=== PATIENT | female | born 1990 | race Caucasian/White ===

== ENCOUNTER 2016-05-14 13:55 | Emergency (ER) | payer BC ==
[~2016-05-14] VITALS: Ht 157.5 cm; Wt 58.0 kg
[2016-05-14 14:00] VITALS: Ht 157.5 cm; Wt 58.0 kg
--- NOTE | 2016-05-14 14:30 | ERD ---
ER Documentation Chief Complaint Date/Time DATE: 05/14/16 TIME: 14:28 Chief Complaint pt thinks she's having an allergic reaction to muncha crunch HPI 26-year-old female presents the emergency department after a questionable allergic reaction. Patient states she ate something with knots and feels as if her throat was closing for a couple of minutes. She reported no reaction including no rash and no difficulty breathing. After lasting for approximately half an hour, this is completely resolved and she now has no further symptoms. ROS All systems reviewed and are negative except as per history of present illness. Allergies Allergies: Coded Allergies: amoxicillin (Verified Allergy, Mild, 05/14/16) PMhx/Soc Medical and Surgical Hx: pt denies Medical Hx, pt denies Surgical Hx History of Surgery: No Anesthesia Reaction: No Hx Neurological Disorder: No Hx Respiratory Disorders: No Hx Cardiac Disorders: No Hx Psychiatric Problems: No Hx Miscellaneous Medical Probl: No Hx Alcohol Use: No Hx Substance Use: No Hx Tobacco Use: No Smoking Status: Never smoker FmHx Noncontributory for chief complaint Physical Exam Vitals Vital Signs Date Time Temp Pulse Resp B/P Pulse Ox O2 Delivery O2 Flow Rate FiO2 05/14/16 14:00 98.3 123 20 123/72 100 Physical Exam GENERAL: The patient is well developed and appropriate for usual state of health in no apparent distress HEENT: Pupils equal, round, and reactive to light. EOMI. There is no scleral icterus. No tonsillar hypertrophy or uvula edema NECK: C-spine is soft and supple, there is no meningismus. There is no cervical lymphadenopathy. No stridor LUNGS: Clear to auscultation bilaterally. There are no rales, wheezes or rhonchi. HEART: Regular rate and rhythm, no murmurs, clicks, rubs or gallops. Skin: No rash noted Procedures/MDM Patient was taken to a room, seen and examined Medical decision makin-year-old female presents with what she considers to be a questionable reaction to eating nuts. At this time, patient has no residual findings of allergy at all. She has no signs of symptoms of anaphylaxis or anaphylactoid type reaction. She is clinically well this time and now appropriate for outpatient care. Departure Diagnosis: Primary Impression: Allergic reaction Patient Instructions: Allergic Reaction, Other (General) Additional Instructions: Use benadryl or zyrtec if you need to. Return for any problems or concerns SHERRY EAST May 14, 2016 14:30
== END 2016-05-14 14:30 | disposition home or self-care (01) ==
LOC: FTE 13:55
DX: T78.1XXA Other adverse food reactions, not elsewhere classified, initial encounter (principal); J39.2 Other diseases of pharynx
CPT/HCPCS: 99282

== ENCOUNTER 2016-07-30 02:23 | Emergency (ER) | payer BC ==
[~2016-07-30] VITALS: Ht 157.5 cm; Wt 46.5 kg
[2016-07-30 02:29] VITALS: Ht 157.5 cm; Wt 46.5 kg
[2016-07-30] MEDS ORDERED: ALPRAZOLAM 1 MG TAB PO ONE (03:00)
[2016-07-30 03:11] LABS: ADD SCAN DIFF NO
--- NOTE | 2016-07-30 03:15 | ERD ---
ER Documentation Chief Complaint Date/Time DATE: 07/30/16 TIME: 03:06 Chief Complaint palpitations/sob on and off x 1 day HPI 26-year-old female is here in emergency department for complaints of palpitations on and off shortness of breath and chest pain started yesterday. Patient has history of anxiety, she used to take Paxil for this. Patient states that her bronchitis symptoms as well as return ever since her mom a few months ago, last 2 weeks, stress has been more in school. Today, patient has episodes of palpitations, shortness of breath and chest pain, sharp pain, 4/10 scale, is worse upon taking a deep breath. Patient denies any dyspnea on exertion or dyspnea when help. Patient feels will heart rate going faster. Patient denies any dizziness. ROS All systems reviewed and are negative except as per history of present illness. Medications Home Meds Active Scripts [none] No Conflict Check Prov:LEESA MELVIN NP 07/30/16 Allergies Allergies: Coded Allergies: amoxicillin (Verified Allergy, Mild, 07/30/16) PMhx/Soc Medical and Surgical Hx: pt denies Medical Hx, pt denies Surgical Hx History of Surgery: No Anesthesia Reaction: No Hx Neurological Disorder: No Hx Respiratory Disorders: No Hx Cardiac Disorders: No Hx Psychiatric Problems: No Hx Miscellaneous Medical Probl: No Hx Alcohol Use: No Hx Substance Use: No Hx Tobacco Use: No Smoking Status: Never smoker FmHx Family History: No coronary disease, No diabetes, No other Physical Exam Vitals Vital Signs Date Time Temp Pulse Resp B/P Pulse Ox O2 Delivery O2 Flow Rate FiO2 07/30/16 03:44 94 07/30/16 02:29 98.9 127 20 133/84 100 Physical Exam GENERAL: The patient is well developed and appropriate for usual state of health, in no apparent distress. CHEST: Clear to auscultation bilaterally. There are no rales, wheezes or rhonchi. HEART: Regular rate and rhythm. No murmurs, clicks, rubs or gallops. No S3 or S4. ABDOMEN: Soft, nontender and nondistended. Good bowel sounds. No rebound or guarding. No gross peritonitis. No gross organomegaly or masses. No Rahman sign or McBurney point tenderness. BACK: No midline or flank tenderness. EXTREMITIES: Equal pulses bilaterally. There is no peripheral clubbing, cyanosis or edema. No focal swelling or erythema. Full range of motion. Grossly neurovascularly intact. NEURO: Alert and oriented. Cranial nerves 2-12 intact. Motor strength in all 4 extremities with 5/5 strength. Sensation grossly intact. Normal speech and gait. SKIN: There is no apparent rash or petechia. The skin is warm and dry. HEMATOLOGIC AND LYMPHATIC: There is no evidence of excessive bruising or lymphedema. No gross cervical, axillary, or inguinal lymphadenopathy. Result Diagram: 07/30/16 03007/30/16 0300 Results 24 hrs Laboratory Tests Test 07/30/16 03:00 White Blood Count 5.810^3/ul Red Blood Count 4.6410^6/ul Hemoglobin 14.7g/dl Hematocrit 41.8% Mean Corpuscular Volume 90.1fl Mean Corpuscular Hemoglobin 31.7pg Mean Corpuscular Hemoglobin Concent 35.2g/dl Red Cell Distribution Width 11.8% Platelet Count 27776^3/UL Mean Platelet Volume 10.9fl Neutrophils % 52.2% Lymphocytes % 35.8% Monocytes % 9.0% Eosinophils % 2.3% Basophils % 0.5% Nucleated Red Blood Cells % 0.0/100WBC Neutrophils # 3.010^3/ul Lymphocytes # 2.110^3/ul Monocytes # 0.510^3/ul Eosinophils # 0.110^3/ul Basophils # 0.010^3/ul Nucleated Red Blood Cells # 0.010^3/ul D-Dimer 400.61ng/ml D-Dimer Comment Sodium Level 141mmol/L Potassium Level 3.1mmol/L Chloride Level 105mmol/L Carbon Dioxide Level 21mmol/L Anion Gap 18 Blood Urea Nitrogen 18mg/dl Creatinine 0.58mg/dl Glucose Level 114mg/dl Calcium Level 9.4mg/dl Total Bilirubin 0.7mg/dl Direct Bilirubin 0.00mg/dl Indirect Bilirubin 0.7mg/dl Aspartate Amino Transf (AST/SGOT) 21IU/L Alanine Aminotransferase (ALT/SGPT) 20IU/L Alkaline Phosphatase 76IU/L Troponin I < 0.012ng/ml Total Protein 8.0g/dl Albumin 4.7g/dl Globulin 3.30g/dl Albumin/Globulin Ratio 1.42 Current Medications Medications (Trade) Dose Ordered Sig/Court Route PRN Reason Start Time Stop Time Status Last Admin Dose Admin Alprazolam (Xanax) 1 mg ONCE ONCE PO 07/30/16 03:00 07/30/16 03:01 DC 07/30/16 03:04 Potassium Chloride (Klor-Con 20) 40 meq ONCE ONCE PO 07/30/16 03:52 07/30/16 03:53 DC xanax was given here in emergency department, improved afterwards, patient verbalizing much better. EKG was done, read by me and sinus tachycardia, normal axis, there is no ST changes or changes in the EKG that indicates any cardiac emergencies at this time. Patient's EKG was also reviewed by Dr. Hutchins. Impression: no acute findings on EKG PROCEDURE: CHEST - 1 VIEW CLINICAL INDICATION: 26-year-old female with chest pain. TECHNIQUE: A single frontal AP upright portable view of the chest was performed. The images were reviewed on a PACS workstation. COMPARISON: None. FINDINGS: The cardiomediastinal silhouette has a normal appearance. There is no evidence for an infiltrate. The pulmonary vascularity is within normal limits. There is no evidence for pneumothorax or pneumomediastinum. The osseous structures are intact. IMPRESSION: No evidence for active cardiopulmonary disease. .Errol Pinto MD, MD Date Time Electronically viewed and signed by .Errol Pinto MD, MD on 07/30/2016 03:49 .M/ CC: LEESA MELVIN ROAD CONDUCTOR Procedures/MDM Medical Decision Making: Patient's symptoms of most likely consistent with anxiety, nonspecific at this time. Is likely stress related. There is low suspicion for cardiopulmonary emergencies at this time. Patient has low risk factors. EKG is normal, there is no changes in the EKG that indicates cardiac emergencies. Chest X-ray does not show cardiopulmonary emergencies at this time. There is low suspicion for aortic aneurysm, myocardial infarction, pneumothorax, pleural effusion, pulmonary embolism, or any other cardiopulmonary emergencies at this time. Cardiac markers are normal. Patient is advised to see associate professor physician specialist for Holter monitoring or seek bioinformatics specialist regarding anxiety, patient will be given few pills of Xanax to help with symptoms and Advised to Follow-Up with Primary Care Doctor in 1-2 Days for Further Evaluation of Symptoms. Patient Is Advised to Return to Emergency Department for Any Worsening Symptoms. Departure Diagnosis: Primary Impression: Palpitations Additional Impression: Anxiety Condition: Stable Patient Instructions: Anxiety Reaction, Palpitations LEESA MELVIN NP Jul 30, 2016 03:15
[2016-07-30 03:22] LABS: ALBUMIN 4.7 g/dl (3.3-4.9)
[2016-07-30 03:23] LABS: CHLORIDE 105 mmol/L (97-110); POTASSIUM 3.1 mmol/L (3.5-5.1); SODIUM 141 mmol/L (135-144)
[2016-07-30 03:25] LABS: ANION GAP 18 (8-16); ASPARTATE AMINO TRANSFERASE 21 IU/L (15-46); BILIRUBIN,INDIRECT 0.7 mg/dl (0-1.1); BILIRUBIN,TOTAL 0.7 mg/dl (0.2-1.3); CARBON DIOXIDE 21 mmol/L (21-31); CREATININE 0.58 mg/dl (0.44-1.00)
[2016-07-30 03:26] LABS: ALANINE AMINOTRANSFERASE 20 IU/L (13-69); ALBUMIN/GLOBULIN RATIO 1.42; ALKALINE PHOSPHATASE 76 IU/L (42-121); BLOOD UREA NITROGEN 18 mg/dl (7-20); CALCIUM 9.4 mg/dl (8.4-10.2); GLUCOSE 114 mg/dl (70-220)
[2016-07-30 03:27] LABS: D-DIMER 400.61 ng/ml (<460)
[2016-07-30 03:38] LABS: BASOPHILS % 0.5 % (0.0-2.0); EOSINOPHILS # 0.1 10^3/ul (0.0-0.5); EOSINOPHILS % 2.3 % (0.0-7.0); HEMATOCRIT 41.8 % (37.0-47.0); HEMOGLOBIN 14.7 g/dl (12.0-16.0); LYMPHOCYTES # 2.1 10^3/ul (0.8-2.9); LYMPHOCYTES % 35.8 % (15.0-51.0); MEAN CORPUSCULAR HEMOGLOBIN 31.7 pg (29.0-33.0); MEAN CORPUSCULAR HGB CONC 35.2 g/dl (32.0-37.0); MEAN CORPUSCULAR VOLUME 90.1 fl (82.0-101.0); MEAN PLATELET VOLUME 10.9 fl (7.4-10.4); MONOCYTE # 0.5 10^3/ul (0.3-0.9); NEUTROPHILS % 52.2 % (39.0-77.0); PLATELET COUNT 283 10^3/UL (140-415); RED BLOOD COUNT 4.64 10^6/ul (4.20-5.40); RED CELL DISTRIBUTION WIDTH 11.8 % (11.5-14.5); WHITE BLOOD COUNT 5.8 10^3/ul (4.8-10.8)
[2016-07-30 03:44] VITALS: PULSE 94
[2016-07-30 03:45] LABS: TROPONIN-I < 0.012 ng/ml (0.00-0.12)
--- NOTE | 2016-07-30 03:49 | RADRPT ---
PROCEDURE: CHEST - 1 VIEW CLINICAL INDICATION: 26-year-old female with chest pain. TECHNIQUE: A single frontal AP upright portable view of the chest was performed. The images were reviewed on a PACS workstation. COMPARISON: None. FINDINGS: The cardiomediastinal silhouette has a normal appearance. There is no evidence for an infiltrate. T he pulmonary vascularity is within normal limits. There is no evidence for pneumothorax or pneumomed iastinum. The osseous structures are intact. IMPRESSION: No evidence for active cardiopulmonary disease. .Errol Pinto MD, MD Date Time Electronically viewed and signed by .Errol Pinto MD, MD on 07/30/2016 03:49 .M/
[2016-07-30] MEDS ORDERED: POTASSIUM CHLORIDE (SR) 20 MEQ TAB PO ONE (03:52)
[2016-07-30] MEDS ORDERED: ALPR0.5T PO (04:04)
[2016-07-30] MEDS ORDERED: POTASSIUM CHLORIDE 20 MEQ POWDER FOR ORAL SOLN PO ONE (04:07)
== END 2016-07-30 04:24 | disposition home or self-care (01) ==
LOC: FTE 02:23
DX: R00.2 Palpitations (principal); F41.9 Anxiety disorder, unspecified
CPT/HCPCS: 36415; 71010; 80053; 84484; 85025; 85378; 93005

== ENCOUNTER 2016-11-14 23:31 | Emergency (ER) | payer BC ==
[~2016-11-14] VITALS: Ht 160 cm; Wt 6.9 kg
[~2016-11-14 23:31] MED LIST: ALPR0.5T PO
[2016-11-14 23:33] VITALS: Ht 160 cm; Wt 6.9 kg
[2016-11-15] MEDS ORDERED: ACETAMINOPHEN 500 MG TAB PO STA (01:19)
[2016-11-15] MEDS ORDERED: IBUPROFEN 600 MG TAB PO ONE (01:30)
[2016-11-15] MEDS ORDERED: IBUPROFEN LIQUID (PED) 20 MG/ML CUP PO STA (01:35)
--- NOTE | 2016-11-15 01:42 | ERD ---
ER Documentation Chief Complaint Date/Time DATE: 11/15/16 TIME: 01:40 Chief Complaint cough x 1 week, nasal congestion HPI 26-year-old female presents to emergency department for complaints of cough for 1 week, patient has been having dry cough, does not cough up any phlegm or blood. Patient without any shortness of breath or wheezing. Patient has been having runny nose nasal congestion clear nasal discharge. Patient has been having fever, did not take medications to help with symptoms. ROS All systems reviewed and are negative except as per history of present illness. Medications Home Meds Active Scripts Azithromycin* (Zithromax*) 250 Mg Tablet, 250 MG PO .ZPACK DIRECTED, #6 TAB TAKE 500 MG (2 TABS) THE FIRST DAY THEN 250 MG (1 TAB) DAYS 2-5 Prov:LEESA MELVIN NP 11/15/16 Ibuprofen* (Motrin*) 600 Mg Tab, 600 MG PO Q6H Y for PAIN AND OR ELEVATED TEMP, #30 TAB Prov:LEESA MELVIN NP 11/15/16 Guaifenesin-Codeine Phosphate* (Guaifenesin* AC Cough Syrup) 473 Ml Liquid, 10 ML PO Q4H Y for COUGH, #120 ML Prov:LEESA MELVIN NP 11/15/16 Albuterol Sulfate* (Proair HFA*) 8.5 Gm Hfa.aer.ad, 2 PUFF INH Q4H Y for WHEEZING AND SOB, #1 INHALER Prov:LEESA MELVIN NP 11/15/16 Alprazolam* (Xanax*) 0.5 Mg Tab, 0.5 MG PO Q8H Y for ANXIETY, #10 TAB Prov:LEESA MELVIN NP 07/30/16 [none] No Conflict Check Prov:LEESA MELVIN NP 07/30/16 Allergies Allergies: Coded Allergies: amoxicillin (Verified Allergy, Mild, 07/30/16) PMhx/Soc Medical and Surgical Hx: pt denies Medical Hx, pt denies Surgical Hx History of Surgery: No Anesthesia Reaction: No Hx Neurological Disorder: No Hx Respiratory Disorders: No Hx Cardiac Disorders: No Hx Psychiatric Problems: No Hx Miscellaneous Medical Probl: No Hx Alcohol Use: No Hx Substance Use: No Hx Tobacco Use: No Smoking Status: Never smoker FmHx Family History: No coronary disease, No diabetes, No other Physical Exam Vitals Vital Signs Date Time Temp Pulse Resp B/P Pulse Ox O2 Delivery O2 Flow Rate FiO2 11/15/16 02:47 100.2 89 20 108/79 100 Room Air 11/14/16 23:33 100.0 120 20 134/65 99 Physical Exam GENERAL: The patient is well developed and appropriate for usual state of health, in no apparent distress. CHEST: Clear to auscultation bilaterally. There are no rales, wheezes or rhonchi. HEART: Regular rate and rhythm. No murmurs, clicks, rubs or gallops. No S3 or S4. ABDOMEN: Soft, nontender and nondistended. Good bowel sounds. No rebound or guarding. No gross peritonitis. No gross organomegaly or masses. No Rahman sign or McBurney point tenderness. BACK: No midline or flank tenderness. EXTREMITIES: Equal pulses bilaterally. There is no peripheral clubbing, cyanosis or edema. No focal swelling or erythema. Full range of motion. Grossly neurovascularly intact. NEURO: Alert and oriented. Cranial nerves 2-12 intact. Motor strength in all 4 extremities with 5/5 strength. Sensation grossly intact. Normal speech and gait. SKIN: There is no apparent rash or petechia. The skin is warm and dry. HEMATOLOGIC AND LYMPHATIC: There is no evidence of excessive bruising or lymphedema. No gross cervical, axillary, or inguinal lymphadenopathy. Results 24 hrs Current Medications Medications (Trade) Dose Ordered Sig/Court Route PRN Reason Start Time Stop Time Status Last Admin Dose Admin Ibuprofen (Motrin) 600 mg ONCE ONCE PO 11/15/16 01:30 11/15/16 01:38 DC Acetaminophen (Tylenol Tab) 500 mg ONCE STAT PO 11/15/16 01:19 11/15/16 01:21 DC Acetaminophen (Tylenol Liquid (Ped)) 650 mg ONCE ONCE PO 11/15/16 02:00 11/15/16 02:01 DC 11/15/16 01:43 Ibuprofen (Motrin Liquid (Ped)) 400 mg ONCE STAT PO 11/15/16 01:35 11/15/16 01:38 DC 11/15/16 01:43 Patient was given medicines for fever control here in the emergency department. After treatment, patient temperature improved and lower. Patient appears well and is hemodynamically stable. PROCEDURE: XR Chest. CLINICAL INDICATION: Cough TECHNIQUE: Portable single view of the chest COMPARISON: 07/30/2016 FINDINGS: The cardiomediastinal silhouette appears within normal limits. The lungs are clear and no pleural effusion or significant edema is seen. No bony abnormality is seen. The lungs may be slightly hyperinflated. IMPRESSION: Perhaps mild hyperinflation. Otherwise negative study. RPTAT: HLBE Sarah Lugo Physician Date Time Electronically viewed and signed by Sarah Lugo Physician on 11/15/2016 02 :14 LE/ CC: LEESA MELVIN FAM[facility] [employer]ACTICE NURSE PRACTITIONER Procedures/MDM Medical Decision Making: Patient symptoms are most likely consistent with acute bronchitis, is likely from atypical infection. There is low suspicion for Pneumonia at this time since patients lungs sounds are clear, patient O2 saturation is normal and patient doesnt show any respiratory distress. Patients chest xray doesnt show infiltrates or any other cardiopulmonary emergencies at this time. There is low suspicion for other cardiopulmonary emergencies at this time such as CHF, Pulmonary Embolism, Pneumothorax, Aortic Aneurysm or any other cardiopulmonary emergencies at this time. There is low suspicion for sepsis. Patient appears well and is hemodynamically stable. Fever is controlled with medicines. Disposition: Home. Condition: Stable Prescriptions: Albuterol, guaifenesin with codeine, Zyrtec, azithromycin Instructions: Patient is advised to take medications as prescribed. Patient is advised to rest. Patient advised to increase fluid intake, do humidifier at home and if possible, do salt water gargles. Patient is advised that if symptoms are worse, shortness of breath, uncontrolled fever, stridor, vomiting, worst signs and symptoms to return to emergency department immediately. Otherwise, patient is advised to follow up with primary doctor in 5-7 days. Departure Diagnosis: Primary Impression: Acute bronchitis Bronchitis organism: unspecified organism Qualified Code: J20.9 - Acute bronchitis, unspecified organism Condition: Stable Patient Instructions: Bronchitis, Antiobiotic Treatment (Adult) Additional Instructions: Patient is advised to take medications as prescribed. Patient is advised to rest. Patient advised to increase fluid intake, do humidifier at home and if possible, do salt water gargles. Patient is advised that if symptoms are worse, shortness of breath, uncontrolled fever, stridor, vomiting, worst signs and symptoms to return to emergency department immediately. Otherwise, patient is advised to follow up with primary doctor in 5-7 days. LEESA MELVIN NP Nov 15, 2016 01:42
[2016-11-15] MEDS ORDERED: ACETAMINOPHEN 160 MG/5ML CUP PO ONE (02:00)
--- NOTE | 2016-11-15 02:14 | RADRPT ---
PROCEDURE: XR Chest. CLINICAL INDICATION: Cough TECHNIQUE: Portable single view of the chest COMPARISON: 07/30/2016 FINDINGS: The cardiomediastinal silhouette appears within normal limits. The lungs are clear and no pleural e ffusion or significant edema is seen. No bony abnormality is seen. The lungs may be slightly hyperi nflated. IMPRESSION: Perhaps mild hyperinflation. Otherwise negative study. RPTAT: HLBE Sarah Lugo Physician Date Time Electronically viewed and signed by Sarah Lugo, Physician on 11/15/2016 02:14 LE/
[2016-11-15] MEDS ORDERED: AZIT250T94 PO (02:33)
[2016-11-15] MEDS ORDERED: GUAI473L22 PO (02:33)
[2016-11-15] MEDS ORDERED: IBUP-1542 PO (02:33)
[2016-11-15] MEDS ORDERED: ALBU8.5H3 INH (02:33)
[2016-11-15 02:47] VITALS: BP 108/79; PULSE 89; RESP 20; TEMP 100.2
== END 2016-11-15 02:47 | disposition home or self-care (01) ==
LOC: FTE 23:31
DX: J20.9 Acute bronchitis, unspecified (principal)
CPT/HCPCS: 71010

== ENCOUNTER 2016-11-30 08:50 | Day surgery (SDC) | payer BC ==
[~2016-11-30] VITALS: Ht 157.5 cm; Wt 46.0 kg
[~2016-11-30 08:50] MED LIST changes: +ALBU8.5H3 INH; +AZIT250T94 PO; +GUAI473L22 PO; +IBUP-1542 PO
[2016-11-30 09:28] VITALS: Ht 157.5 cm; Wt 46.0 kg
[2016-11-30] MEDS ORDERED: PANT40TA4 PO (09:38)
[2016-11-30 09:49] VITALS: BP 110/66; PULSE 97; RESP 18
[2016-11-30] MEDS ORDERED: MIDAZOLAM 1 MG/ML 2 ML INJ ONE ×3 (10:34)
[2016-11-30] MEDS ORDERED: FENTAnyl 50 MCG/ML VIAL ONE (10:35)
--- NOTE | 2016-11-30 11:14 | GILP ---
DATE OF PROCEDURE: 11/30/2016 SURGEON: Juan Reyez MD. PROCEDURE PERFORMED: Esophagogastroduodenoscopy and biopsy. PREOPERATIVE DIAGNOSES: 1. Chronic heartburn. 2. Dysphagia. 3. Weight loss. POSTOPERATIVE DIAGNOSES: 1. Gastroesophageal reflux disease. 2. Gastritis. 3. Gastric mucosal biopsies were taken for Helicobacter pylori test. INDICATION: Miss. Dulce Maria Hunt is a 26-year-old female patient who had chronic heartburn and dysphagia. The patient also had a history of weight loss. The patient was scheduled for endoscopy examination for further evaluation. The procedure and possible complications were well explained to the patient. She understood and consented to the procedure. DESCRIPTION OF PROCEDURE: Under the influence of fentanyl and Versed, the gastroscope was carefully introduced into the esophagus. Under direct vision it was advanced to the stomach, into the pylorus, into the duodenal bulb, and descending duodenum. FINDINGS: ESOPHAGUS: The patient had gastroesophageal reflux disease. STOMACH: She had gastritis and gastric mucosal biopsies were taken for Helicobacter pylori test. Duodenum was normal. She tolerated the procedure very well. There was no complication from the procedure. At the end of procedure, she was awake with stable vital signs and she was discharged home in care of her family. IMPRESSION: 1. Gastroesophageal reflux disease. 2. Gastritis. 3. Gastric mucosal biopsies were taken for Helicobacter pylori test. PLAN: 1. Pantoprazole 40 mg orally every a.m. 2. Await Helicobacter pylori test report. Dictated By: MD LUCITA Daniel/slick/pearl /Document#: [id number] CC: Juan Reyez MD;*[facility]*
== END 2016-11-30 12:05 | disposition home or self-care (01) ==
LOC: GIL 08:50
PROVIDERS: ATTEND Internal Medicine Gastroenterology
DX: K21.9 Gastro-esophageal reflux disease without esophagitis (principal); K29.70 Gastritis, unspecified, without bleeding
CPT/HCPCS: 43239; 84703; 87081; J2250; J3010